=== PATIENT | male | born 1970 | race Caucasian/White ===

== ENCOUNTER 2024-01-13 12:27 | Day surgery (SDC) | payer BC, SELFPAY ==
[2024-01-13] VITALS (10 sets, daily range): BP systolic 102–120; BP diastolic 66–89; BMI 30.2
[2024-01-13 12:54] LABS: Glucose - Point of Care 118 mg/dl (70-99)
[2024-01-13] MEDS: NORMOSOL-R 1000 IV (13:59)
[2024-01-13] MEDS: DILAUDID 0.25 MG IV ×2 (15:50→16:03)
[2024-01-13 16:30] LABS: Glucose - Point of Care 142 mg/dl (70-99)
== END 2024-01-13 17:10 | disposition home or self-care (01) ==
LOC: SDS 12:27
PROVIDERS: ATTENDING PHYSICIAN Surgery
DX: K60.1 Chronic anal fissure (principal)
CPT/HCPCS: 46275; 46050; 82962; 87070; 87075; 87077; 87205

== ENCOUNTER → 2025-03-07 08:04 | Outpatient (REF) | payer BC, SELFPAY | LOC: HWRAD 08:04 | PROVIDERS: ATTENDING PHYSICIAN Internal Medicine; FAMILY PHYSICIAN Family Medicine | DX: Z87.891 Personal history of nicotine dependence (principal) | CPT/HCPCS: 71271 ==